=== PATIENT | female | born 1945 | race Caucasian/White ===

== ENCOUNTER → 2017-05-20 | Outpatient (CLI) | payer MEDICARE, BC ==
--- NOTE | 2017-05-20 13:09 | REP ---
Clinical: Dysphonia . Comparison: None . Technique: PA and lateral. Findings: The mediastinum and cardiac silhouette are normal. The lung reddy demonstrate chronic-appearing interstitial changes without acute consolidation, effusion, or pneumothorax. The skeletal structures are intact and normal. Impression: 1. No acute cardiopulmonary process. Signed by Stanislaw Alonzo MD 05/20/2017 01:01 P
== END ==
LOC: M RAD 12:35
PROVIDERS: ATTEND Otolaryngology
DX: R49.0 Dysphonia (principal)

== ENCOUNTER 2018-01-23 10:21 | Outpatient (RCR) | payer MEDICARE, BC | END 2018-02-04 | LOC: M ST 10:21 | DX: Z51.89 Encounter for other specified aftercare (principal); R49.0 Dysphonia | CPT/HCPCS: 92507 ==

== ENCOUNTER 2018-02-06 07:58 | Outpatient (RCR) | payer MEDICARE, BC | END 2018-03-07 | LOC: M ST 07:58 | DX: R49.0 Dysphonia (principal) | CPT/HCPCS: 92507 ==

== ENCOUNTER 2018-03-11 15:25 | Outpatient (RCR) | payer MEDICARE, BC | END 2018-04-06 | LOC: M ST 15:25 | DX: R49.0 Dysphonia (principal) | CPT/HCPCS: 92507 ==

== ENCOUNTER → 2021-08-11 | Outpatient (CLI) | payer MEDICARE, BC ==
[2021-08-11 13:24] LABS: C REACTIVE PROTEIN QUANTITATIV < 0.30 MG/DL (0.00-0.30); RHEUMATOID FACTOR QUANT < 10.0 IU/ML (<15.0)
[2021-08-11 14:02] LABS: CA19-9 TUMOR MARKER,CARBOHYDRA 16.4 U/ML (<35.0)
[2021-08-16 14:09] LABS: ANCA-ATYPICAL <1:20 titer (Neg:<1:20); ANGIOTENSIN 1 CONVERTING ENZYM 35 U/L (14-82); ANTINUCLEAR ANTIBODIES DIRECT Negative (Negative); ASPERGILLUS FUMIGATUS AB Negative (Negative); AUREOBASIDIUM PULLULANS Negative (Negative); CYCLIC CITRULLINATED PEPTIDE 4 units (0-19); CYTOPLASMIC NEUTROP AB ANCA-C <1:20 titer (Neg:<1:20); MICROPOLYSPORA FAENI AB Negative (Negative); PERINUCLEAR AB ANCA-P <1:20 titer (Neg:<1:20); PIGEON SERUM AB Negative (Negative); SJOGREN'S ANTI SS-A <0.2 AI (0.0-0.9); SJOGREN'S ANTI SS-B <0.2 AI (0.0-0.9); THERMOACTINOMYCES SACCHARI Negative (Negative); THERMOACTINOMYCES VULGARIS Negative (Negative)
[2021-08-18 14:11] LABS: ANA (HEP2) Negative (.); ANTI DS-DNA AB Negative (Negative); ANTI JO-1 ANTIBODIES <20 Units (<20); RNP ANTIBODY < 0.2 AI (0.0-0.9); SMITHS ANTIBODY < 0.2 AI (0.0-0.9)
== END ==
LOC: M PLALAB 11:45
PROVIDERS: ATTEND Internal Medicine Pulmonary Disease
DX: J84.9 Interstitial pulmonary disease, unspecified (principal)

== ENCOUNTER → 2021-09-01 | Outpatient (CLI) | payer MEDICARE, BC | LOC: M RAD 10:36 | PROVIDERS: ATTEND Internal Medicine Pulmonary Disease | DX: J84.10 Pulmonary fibrosis, unspecified (principal) ==

== ENCOUNTER → 2021-12-22 | Outpatient (CLI) | payer MEDICARE, BC ==
[2021-12-22 10:35] LABS: ALBUMIN 3.6 GM/DL (3.2-5.2); BILIRUBIN,DIRECT 0.1 MG/DL (0.0-0.2); BILIRUBIN,TOTAL 0.5 MG/DL (0.2-1.0); TOTAL PROTEIN 7.9 GM/DL (6.4-8.2)
== END ==
LOC: M PLALAB 09:06
PROVIDERS: ATTEND Internal Medicine Pulmonary Disease
DX: J84.9 Interstitial pulmonary disease, unspecified (principal)

== ENCOUNTER → 2024-07-10 | Outpatient (CLI) | payer MEDICARE, BC | LOC: M PLAIMG 14:33 | PROVIDERS: ATTEND Internal Medicine Critical Care Medicine | DX: J84.9 Interstitial pulmonary disease, unspecified (principal); I25.84 Coronary atherosclerosis due to calcified coronary lesion ==

== ENCOUNTER 2025-01-18 17:10 | Emergency (ER) | payer MEDICARE, BC ==
[~2025-01-18] VITALS: Ht 170.2 cm; Wt 63.6 kg
[2025-01-18] MEDS ORDERED: SYNT112T2 (17:24)
[2025-01-18] MEDS: ACETAMINOPHEN 500 MG TAB PO ONE (21:46)
[2025-01-18 23:28] VITALS: BP 134/72; TEMP 97.6; O2SAT 96
== END 2025-01-19 | disposition left against medical advice (07) ==
LOC: M ED 17:10 → EDBD 17:10 → EDUNIT# 17:10 → M ED 01-19
DX: Z53.21 Procedure and treatment not carried out due to patient leaving prior to being seen by health care provider (principal)

== ENCOUNTER 2025-02-11 21:18 | Inpatient (IN) | payer MEDICARE, BC ==
[~2025-02-11] VITALS: Ht 167.6 cm; Wt 63.8 kg
[~2025-02-11 21:18] MED LIST: SYNT112T2 PO
[2025-02-11 21:20] VITALS: BP 159/86; TEMP 97.8; O2SAT 98
[2025-02-11] MEDS ORDERED: MAALOX 30 ML SUSP *UDC PO PRN (22:05)
[2025-02-11] MEDS ORDERED: OXYC-517 PO (22:36)
[2025-02-11] MEDS ORDERED: VITA250T27 PO (22:36)
[2025-02-11] MEDS ORDERED: VITA100016 PO (22:41)
[2025-02-11] MEDS ORDERED: VITA90CA4 PO (22:41)
[2025-02-11] MEDS ORDERED: VITA250T7 PO (22:41)
[2025-02-11] MEDS ORDERED: HOME MED LIST COMPLETE! XX SCH (22:45)
[2025-02-11] MEDS: DOCUSATE SODIUM 100 MG CAPSULE PO SCH (23:08)
[2025-02-11] MEDS: MORPHINE 2 MG/ML 1 ML VIAL IV ONE (23:09)
[2025-02-11] MEDS: NS (Normal Saline) 0.9% 1,000 ML IV SCH (23:10)
[2025-02-11] MEDS: ACETAMINOPHEN *IV* 1,000 MG in IV 1 EA IV ONE (23:10)
[2025-02-12 03:11] VITALS: BP 139/77; TEMP 97.9; O2SAT 97
[2025-02-12] MEDS ORDERED: ASCORBIC ACID 250 MG TAB PO SCH (04:00)
[2025-02-12 06:06] LABS: PLATELET COUNT, AUTOMATED 363 10^3/uL (150-450)
[2025-02-12 06:17] LABS: INR 0.86
[2025-02-12] MEDS: cefTRIAXone SOD 1 GM in DEXTROSE 5% (D5W) ADV/MINI-BAG 50 ML IV SCH (06:31)
[2025-02-12] MEDS: LEVOTHYROXINE 112 MCG TABLET (0.112 MG) PO SCH (06:31)
[2025-02-12 07:08] LABS: ALT/SGPT 26.0 U/L (7.0-40); AST/SGOT 31.0 U/L (<34); CALCIUM LEVEL 9.2 MG/DL (8.3-10.6); CARBON DIOXIDE LEVEL 28.0 MMOL/L (20-31); CHLORIDE LEVEL 100.0 MMOL/L (98-107); CREATININE FOR GFR 0.77 MG/DL (0.55-1.30); GLOMERULAR FILTRATION RATE 78.9 (>39); MAGNESIUM LEVEL 2.0 MG/DL (1.8-2.4); POTASSIUM SERUM 4.4 MMOL/L (3.5-5.1); SODIUM LEVEL 137.0 MMOL/L (136-145)
[2025-02-12] MEDS: PANTOPRAZOLE 40MG VIAL IV SCH (08:34)
[2025-02-12 11:54] VITALS: BP 150/85; TEMP 97.3; O2SAT 98
[2025-02-12] MEDS: ENOXAPARIN 40 MG/0.4 ML SYRINGE (J1650 PER 10MG) SC SCH (16:45)
[2025-02-12 20:00] VITALS: BP 151/85; TEMP 97.9; O2SAT 97
[2025-02-13 03:12] VITALS: BP 141/84; TEMP 97.9; O2SAT 98
[2025-02-13 06:29] LABS: PLATELET COUNT, AUTOMATED 325 10^3/uL (150-450)
[2025-02-13 07:05] LABS: CALCIUM LEVEL 9.1 MG/DL (8.3-10.6); CARBON DIOXIDE LEVEL 28.0 MMOL/L (20-31); CHLORIDE LEVEL 100.0 MMOL/L (98-107); CREATININE FOR GFR 0.78 MG/DL (0.55-1.30); GLOMERULAR FILTRATION RATE 77.7 (>39); POTASSIUM SERUM 4.3 MMOL/L (3.5-5.1); SODIUM LEVEL 139.0 MMOL/L (136-145)
[2025-02-13] MEDS: CYANOCOBALAMIN 250 MCG TABLET PO SCH (08:38)
[2025-02-13] MEDS: ASCORBIC ACID 250 MG TAB PO SCH (09:16)
[2025-02-13 12:13] VITALS: BP 145/86; TEMP 97.9; O2SAT 96
[2025-02-13 20:17] VITALS: BP 145/89; TEMP 98.1; O2SAT 95
[2025-02-14 04:10] VITALS: BP 143/85; TEMP 97.9; O2SAT 97
[2025-02-14 11:56] VITALS: BP 135/81; TEMP 98.6; O2SAT 95
[2025-02-14] MEDS: KETOROLAC 30 MG/ML 1 ML VIAL IV ONE (16:42)
[2025-02-14] MEDS: ONDANSETRON 4MG TAB PO PRN (17:25)
[2025-02-14] MEDS: ACETAMINOPHEN 500 MG TAB PO SCH (17:55)
[2025-02-14] MEDS: MOM 30 ML SUSPENSION UDC PO PRN (20:16)
[2025-02-14] MEDS: DICLOFENAC EPOLAMINE 1.3% PATCH TOP SCH (20:17)
[2025-02-15 05:58] VITALS: BP 135/81; TEMP 97.7; O2SAT 96
[2025-02-16 06:15] VITALS: BP 136/81; TEMP 98.1; O2SAT 95
== END 2025-02-16 14:21 | disposition home or self-care (01) | DRG 552 ==
LOC: M MSPAV 21:18
PROVIDERS: ADMIT Student in an Organized Health Care Education/Training Program; ATTEND Student in an Organized Health Care Education/Training Program
DX: S22.080A Wedge compression fracture of T11-T12 vertebra, initial encounter for closed fracture (principal); J84.9 Interstitial pulmonary disease, unspecified; J44.9 Chronic obstructive pulmonary disease, unspecified; E03.9 Hypothyroidism, unspecified; Z90.49 Acquired absence of other specified parts of digestive tract; Z90.79 Acquired absence of other genital organ(s); M54.9 Dorsalgia, unspecified; F03.90 Unspecified dementia, unspecified severity, without behavioral disturbance, psychotic disturbance, mood disturbance, and anxiety; Z79.890 Hormone replacement therapy; Z79.899 Other long term (current) drug therapy; Z88.2 Allergy status to sulfonamides; X50.0XXA Overexertion from strenuous movement or load, initial encounter; Y92.9 Unspecified place or not applicable